=== PATIENT | female | born 1970 | race Hispanic/Latino ===

== ENCOUNTER → 2020-06-09 | Outpatient (CLI) | payer BC ==
[~2020-06-09] MED LIST: IOHEXOL-350 50ML VIAL IV ONE
== END | disposition home or self-care (01) ==
LOC: RAH 13:38
PROVIDERS: ATTEND Nurse Practitioner Family
DX: L04.9 Acute lymphadenitis, unspecified (principal)
CPT/HCPCS: 70491; Q9967